=== PATIENT | female | born 1945 | race Caucasian/White ===

== ENCOUNTER 2016-05-08 15:22 | Emergency (ER) | payer OTHER, MEDICARE ==
--- NOTE | 2016-05-08 16:59 | ED CLINICAL REPORT ---
Clinical Report - Physicians/Mid Levels [facility] [address] [place] [address] 05/08/2016 15:24 Patient: CORTNEY ALBARRAN [facility] [id number] Time Seen: 16:11 May 08 2016. Arrived- By private vehicle. HISTORY OF PRESENT ILLNESS Chief Complaint: Injury to the left hand. The injury happened just prior to arrival. Occurred at home. The patient sustained a laceration. ( reports a glass chart broken her hand while washing it. Reports laceration to the left hand. No prior injury to the area. No bleeding. Was seen at the 10 minute clinic, referred to the ER for sutures.). REVIEW OF SYSTEMS The patient sustained a laceration. All systems otherwise negative, except as recorded above. PAST HISTORY Tetanus U. The patient's dominant hand is the right. She has not had a prior injury to the same area. Tetanus immunization status is up-to-date. SOCIAL HISTORY Never smoker. No alcohol use or drug use. ADDITIONAL NOTES The nursing notes have been reviewed. PHYSICAL EXAM Vital Signs: 05/08/2016 17:20 BP: 116/45. HR: 78. RR: 12. O2 saturation: 100%. Temp: 98.2 F. Appearance: Alert. Head: Head atraumatic. CVS: Normal heart rate and rhythm. Heart sounds normal. Respiratory: No respiratory distress. Breath sounds normal. Skin: Skin warm. Extremities: Hypothenar eminence, left hand: (ulnar aspect 1 cm partial thickness gaping lac, no fb, no distal dificulty with rom or other, no infectious signs , no erythema). Soft tissue tenderness present. No wrist injury. Neuro, Vascular and Tendons: Vascular status intact. No pulse deficit present. Motor intact. Neuro: Oriented X 3. No motor deficit. PROGRESS AND PROCEDURES Laceration Repair: Time: 1714May 08 2016. Location: (left ulnar aspect of hand). Time-out completed immediately before the procedure. Length: 1 cm. Complexity: simple (local anesthesia used and sutured). Wound depth/shape- linear and involving fascia. Wound is clean. Local anesthesia provided using 1% lidocaine with epi. Wound explored, cleansed and irrigated. Closure of superficial layer: interrupted 5-0 (4 sutures). Course of Care: Full range of motion, neuro and vascular intact. No signs of infectious process. Patient stable. Fall palpation. 05/08/2016 17:20 BP: 116/45. HR: 78. RR: 12. O2 saturation: 100%. Temp: 98.2 F. Patient is stable. Physical exam findings are improved. Symptoms better. Patient/family counseled. Disposition: Discharged. CLINICAL IMPRESSION Single deep laceration to the left hand. INSTRUCTIONS Protect wound and keep wound area clean. Apply bacitracin twice daily. Sutures should be removed in six days. OTC Medications: Take OTC medications according to label instructions. Available over the counter. Acetaminophen (available over the counter): take according to label instructions. Follow-up: Follow up with your doctor in three days. (Electronically signed by Elke Camacho P.A.-C 05/08/2016 17:33)
--- NOTE | 2016-05-08 16:59 | ED NURSING NOTES ---
Clinical Report - Nurses [facility] [address] [place] [address] 05/08/2016 15:24 Patient: CORTNEY ALBARRAN TRIAGE Triage time 1612 PM. Acuity: LEVEL 3. Chief Complaint: INJURY TO LEFT HAND. Alert. No acute distress. SEPSIS SCREEN: Sepsis Screen. Negative (no infection suspected/documented). --16:18 Deborah Garcia R.N. 16:12 05/08/16. HR: 73. RR: 18. O2 saturation: 100%. Temp: 97.6 F. Pain level now: 04/06. --16:18 Deborah Garcia R.N. late entry - 16:12 PM. --17:28 Deborah Garcia R.N. 16:12 05/08/16. BP: 109/45 (regular adult cuff) taken on the right arm, via an automated monitor, while sitting. --17:28 Deborah Garcia R.N. Weight: 65.7 kg stated. Height/Length: 63 inches Per Patient. BMI: 25.7. --16:12 Deborah Garcia R.N. Medications Azithromycin Oral (just finished a course of this Atx). Levothroid Oral pt uncertain, daily. Levothyroxine Sodium Oral 88 mcg, daily. Pravastatin Sodium Oral. --16:14 Deborah Garcia R.N. Allergies Penicillins. Definite Moderate(rash) --16:14 Deborah Garcia R.N. Medication/allergy information source: the patient. --16:18 Deborah Garcia R.N. History Arrived by private vehicle. Historian: patient. ( PT states at home washing a large glass bowl when it broke in her hand, went to [facility] and was told to come to ED for stiches). This occurred today. Occurred at home. She sustained a laceration. No weakness or numbness. 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 PAST MEDICAL HX: Tetanus status: up-to-date. Immunizations: up-to-date. SOCIAL HX: Never smoker. No alcohol use or drug use. No infectious disease exposure. ABUSE ASSESSMENT: No report of abuse. SELF HARM ASSESSMENT: A self harm assessment was performed. The patient answered "no" to the question "Do you have thoughts of harming or killing yourself?" and "Have you recently had thoughts about harming or killing others?". FALL RISK ASSESSMENT: Fall risk assessment completed. No fall risk identified. NUTRITIONAL RISK ASSESSMENT: The nutritional risk assessment revealed no deficiencies. FUNCTIONAL ASSESSMENT: Functional assessment: no impairments noted. LEARNING NEEDS ASSESSMENT: The learning needs assessment revealed no barriers. SKIN INTEGRITY ASSESSMENT: Skin integrity risk assessment completed. No skin integrity risk identified. --16:18 Deborah Garcia R.N. PROBLEMS: Aphthous Ulcer. Gastroesophageal Reflux Disease. Atypical Chest Pain. Bronchitis. Thyroid Disease. Hypercholesterolemia. --16:14 Deborah Garcia R.N. ADDITIONAL SURGERIES: Adenoidectomy. Appendectomy. Cholecystectomy. Tonsillectomy. --16:14 Deborah Garcia R.N. Interventions ID band on patient. --16:18 Deborah Garcia R.N. PHYSICAL ASSESSMENT Ambulatory to room. GENERAL / NEURO / PSYCH: Oriented X 4. Alert. Does not appear in pain or distress or anxious. EXTREMITIES: Capillary refill is less than 2 seconds in the extremities. Extremity pulses are within normal limits. Left hand: tenderness, erythema, small abrasion, 2.0 cm laceration with controlled bleeding and multiple puncture wounds localized to the distal and palmar aspect of the hand. No foreign body or deformity. SKIN: Skin intact. Skin is warm and dry. --16:19 Deborah Garcia R.N. NURSING PROGRESS NOTES The initial plan of care for this patient has been created This plan of care was discussed with the patient. Reassurance given to the patient and patient's family. Two patient identifiers checked. Call light placed in reach. Side rails up x 1. Bed placed in lowest position. Brakes of bed on. --16:19 Deborah Garcia R.N. DISPOSITION / DISCHARGE Departure time: 1727 PM. Condition at departure: improved and stable. The goals identified in the patient's plan of care were met. No learning barriers present. Discharge instructions provided and reviewed with the patient. Reviewed warnings (s/s of infection). Reviewed medication(s) side effects, precautions, dosing and course information. Prescription(s) given to the patient. Reviewed wound care instructions. Activity restrictions (minimal use of injured extremity and rest) reviewed. Patient verbalized understanding. Written instructions provided in Hungarian. ( Pt verbalizes follow-up care and wound care, all instructions reviewed, site intact, cleaned and wrapped). The patient was discharged by the physician assistant accounting manager. She was discharged home and accompanied by spouse. She left the Emergency Department ambulatory and via private vehicle. Spouse driving. FALL RISK ASSESSMENT: Fall risk assessment completed. No fall risk identified. --17:27 Deborah Garcia R.N. 17:20 05/08/16. BP: 116/45 (regular adult cuff) taken on the right arm, via an automated monitor, while sitting. HR: 78. RR: 12. O2 saturation: 100% on room air. Temp: 98.2 F (oral). --17:27 Deborah Garcia R.N. 17:28 05/08/16. Pain level now: 0/10. --17:28 Deborah Garcia R.N. Locked/Released at 05/08/2016 17:28 by Deborah Garcia R.N.
--- NOTE | 2016-05-08 16:59 | ED NURSING NOTES ---
Clinical Report - Nurses [facility] [address] [place] [address] 05/08/2016 15:24 Patient: CORTNEY ALBARRAN TRIAGE Triage time 1612 PM. Acuity: LEVEL 3. Chief Complaint: INJURY TO LEFT HAND. Alert. No acute distress. SEPSIS SCREEN: Sepsis Screen. Negative (no infection suspected/documented). --16:18 Deborah Garcia R.N. 16:12 05/08/16. HR: 73. RR: 18. O2 saturation: 100%. Temp: 97.6 F. Pain level now: 04/06. --16:18 Deborah Garcia R.N. late entry - 16:12 PM. --17:28 Deborah Garcia R.N. 16:12 05/08/16. BP: 109/45 (regular adult cuff) taken on the right arm, via an automated monitor, while sitting. --17:28 Deborah Garcia R.N. Weight: 65.7 kg stated. Height/Length: 63 inches Per Patient. BMI: 25.7. --16:12 Deborah Garcia R.N. Medications Azithromycin Oral (just finished a course of this Atx). Levothroid Oral pt uncertain, daily. Levothyroxine Sodium Oral 88 mcg, daily. Pravastatin Sodium Oral. --16:14 Deborah Garcia R.N. Allergies Penicillins. Definite Moderate(rash) --16:14 Deborah Garcia R.N. Medication/allergy information source: the patient. --16:18 Deborah Garcia R.N. History Arrived by private vehicle. Historian: patient. ( PT states at home washing a large glass bowl when it broke in her hand, went to [facility] and was told to come to ED for stiches). This occurred today. Occurred at home. She sustained a laceration. No weakness or numbness. 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 PAST MEDICAL HX: Tetanus status: up-to-date. Immunizations: up-to-date. SOCIAL HX: Never smoker. No alcohol use or drug use. No infectious disease exposure. ABUSE ASSESSMENT: No report of abuse. SELF HARM ASSESSMENT: A self harm assessment was performed. The patient answered "no" to the question "Do you have thoughts of harming or killing yourself?" and "Have you recently had thoughts about harming or killing others?". FALL RISK ASSESSMENT: Fall risk assessment completed. No fall risk identified. NUTRITIONAL RISK ASSESSMENT: The nutritional risk assessment revealed no deficiencies. FUNCTIONAL ASSESSMENT: Functional assessment: no impairments noted. LEARNING NEEDS ASSESSMENT: The learning needs assessment revealed no barriers. SKIN INTEGRITY ASSESSMENT: Skin integrity risk assessment completed. No skin integrity risk identified. --16:18 Deborah Garcia R.N. PROBLEMS: Aphthous Ulcer. Gastroesophageal Reflux Disease. Atypical Chest Pain. Bronchitis. Thyroid Disease. Hypercholesterolemia. --16:14 Deborah Garcia R.N. ADDITIONAL SURGERIES: Adenoidectomy. Appendectomy. Cholecystectomy. Tonsillectomy. --16:14 Deborah Garcia R.N. Interventions ID band on patient. --16:18 Deborah Garcia R.N. PHYSICAL ASSESSMENT Ambulatory to room. GENERAL / NEURO / PSYCH: Oriented X 4. Alert. Does not appear in pain or distress or anxious. EXTREMITIES: Capillary refill is less than 2 seconds in the extremities. Extremity pulses are within normal limits. Left hand: tenderness, erythema, small abrasion, 2.0 cm laceration with controlled bleeding and multiple puncture wounds localized to the distal and palmar aspect of the hand. No foreign body or deformity. SKIN: Skin intact. Skin is warm and dry. --16:19 Deborah Garcia R.N. NURSING PROGRESS NOTES The initial plan of care for this patient has been created This plan of care was discussed with the patient. Reassurance given to the patient and patient's family. Two patient identifiers checked. Call light placed in reach. Side rails up x 1. Bed placed in lowest position. Brakes of bed on. --16:19 Deborah Garcia R.N. DISPOSITION / DISCHARGE Departure time: 1727 PM. Condition at departure: improved and stable. The goals identified in the patient's plan of care were met. No learning barriers present. Discharge instructions provided and reviewed with the patient. Reviewed warnings (s/s of infection). Reviewed medication(s) side effects, precautions, dosing and course information. Prescription(s) given to the patient. Reviewed wound care instructions. Activity restrictions (minimal use of injured extremity and rest) reviewed. Patient verbalized understanding. Written instructions provided in Frisian. ( Pt verbalizes follow-up care and wound care, all instructions reviewed, site intact, cleaned and wrapped). The patient was discharged by the physician graduate assistant athletic trainer. She was discharged home and accompanied by spouse. She left the Emergency Department ambulatory and via private vehicle. Spouse driving. FALL RISK ASSESSMENT: Fall risk assessment completed. No fall risk identified. --17:27 Deborah Garcia R.N. 17:20 05/08/16. BP: 116/45 (regular adult cuff) taken on the right arm, via an automated monitor, while sitting. HR: 78. RR: 12. O2 saturation: 100% on room air. Temp: 98.2 F (oral). --17:27 Deborah Garcia R.N. 17:28 05/08/16. Pain level now: 0/10. --17:28 Deborah Garcia R.N. Locked/Released at 05/08/2016 17:28 by Deborah Garcia R.N.
--- NOTE | 2016-05-08 16:59 | ED CLINICAL REPORT ---
Clinical Report - Physicians/Mid Levels Located Within [facility] [address] [place] [address] 05/08/2016 15:24 [id number] Time Seen: 16:11 May 08 2016. Arrived- By private vehicle. HISTORY OF PRESENT ILLNESS Chief Complaint: Injury to the left hand. The injury happened just prior to arrival. Occurred at home. The patient sustained a laceration. ( reports a glass chart broken her hand while washing it. Reports laceration to the left hand. No prior injury to the area. No bleeding. Was seen at the [facility] clinic, referred to the ER for sutures.). REVIEW OF SYSTEMS The patient sustained a laceration. All systems otherwise negative, except as recorded above. PAST HISTORY Tetanus U. The patient's dominant hand is the right. She has not had a prior injury to the same area. Tetanus immunization status is up-to-date. SOCIAL HISTORY Never smoker. No alcohol use or drug use. ADDITIONAL NOTES The nursing notes have been reviewed. PHYSICAL EXAM Vital Signs: 05/08/2016 17:20 BP: 116/45. HR: 78. RR: 12. O2 saturation: 100%. Temp: 98.2 F. Appearance: Alert. Head: Head atraumatic. CVS: Normal heart rate and rhythm. Heart sounds normal. Respiratory: No respiratory distress. Breath sounds normal. Skin: Skin warm. Extremities: Hypothenar eminence, left hand: (ulnar aspect 1 cm partial thickness gaping lac, no fb, no distal dificulty with rom or other, no infectious signs , no erythema). Soft tissue tenderness present. No wrist injury. Neuro, Vascular and Tendons: Vascular status intact. No pulse deficit present. Motor intact. Neuro: Oriented X 3. No motor deficit. PROGRESS AND PROCEDURES Laceration Repair: Time: 1714May 08 2016. Location: (left ulnar aspect of hand). Time-out completed immediately before the procedure. Length: 1 cm. Complexity: simple (local anesthesia used and sutured). Wound depth/shape- linear and involving fascia. Wound is clean. Local anesthesia provided using 1% lidocaine with epi. Wound explored, cleansed and irrigated. Closure of superficial layer: interrupted 5-0 (4 sutures). Course of Care: Full range of motion, neuro and vascular intact. No signs of infectious process. Patient stable. Fall palpation. 05/08/2016 17:20 BP: 116/45. HR: 78. RR: 12. O2 saturation: 100%. Temp: 98.2 F. Patient is stable. Physical exam findings are improved. Symptoms better. Patient/family counseled. Disposition: Discharged. CLINICAL IMPRESSION Single deep laceration to the left hand. INSTRUCTIONS Protect wound and keep wound area clean. Apply bacitracin twice daily. Sutures should be removed in six days. OTC Medications: Take OTC medications according to label instructions. Available over the counter. Acetaminophen (available over the counter): take according to label instructions. Follow-up: Follow up with your doctor in three days. (Electronically signed by Elke Camacho P.A.-C 05/08/2016 17:33)
--- NOTE | 2016-05-08 17:33 | ED MED RECONCILIATION SUMMARY ---
Patient: CORTNEY ALBARRAN Medication Reconciliation Report [facility] VisitID: [id number] [address] [place] [address] 70y, F Registration Date/Time: 05/08/2016 Weight: 65.7 kg Height/Length: 63 in. BMI: 25.7 ALLERGIES: Penicillins The patient's Home Medications are listed below: THE FOLLOWING MEDICATIONS NEED TO BE RECONCILED: Azithromycin Oral, just finished a course of this Atx Levothroid Oral pt uncertain, daily Levothyroxine Sodium Oral 88 mcg, daily Pravastatin Sodium Oral The source(s) of the original Home Medication information: patient The following Medications were given to the patient in the Emergency Department: None. The following Medications were prescribed to the patient: Take OTC medications according to label instructions. Available over the counter. -- Elke Camacho, P.A.-C Acetaminophen (available over the counter): take according to label instructions. -- Elke Camacho, P.A.-C
--- NOTE | 2016-05-08 17:33 | ED MAR SUMMARY ---
..... Medication Administration Record [facility] [address] [place], [place] [id number] Patient: CORTNEY ALBARRAN Visit ID: [id number] 70y, F Weight: 65.7 kg Height/Length: 63 in BMI: 25.7 ALLERGIES: Penicillins
--- NOTE | 2016-05-08 17:33 | ED MAR SUMMARY ---
..... Medication Administration Record [facility] [address] [place], [place] [id number] Patient: CORTNEY ALBARRAN Visit ID: [id number] 70y, F Weight: 65.7 kg Height/Length: 63 in BMI: 25.7 ALLERGIES: Penicillins
--- NOTE | 2016-05-08 17:33 | ED DISCHARGE INSTRUCTIONS ---
Patient: CORTNEY ALBARRAN General Instructions [facility] VisitID: [id number] [place] [address] 70y, F Registration Date/Time: 05/08/2016 Single deep laceration to the left hand. INSTRUCTIONS Protect wound and keep wound area clean. Apply bacitracin twice daily. Sutures should be removed in six days. OTC Medications: Take OTC medications according to label instructions. Available over the counter. Acetaminophen (available over the counter): take according to label instructions. Follow-up: Follow up with your doctor in three days. ADDITIONAL INFORMATION Laceration (All Closures) Alaceration is a cut through the skin. This will usually require stitches (sutures) or leandro if it is deep. Minor cuts may be treated with a surgical tape closure orskin glue. Home care The following guidelines will help you care for your laceration at home: Extremity, face, or trunk wounds Keep the wound clean and dry. If a bandage was applied and it becomes wet or dirty, replace it. Otherwise, leave it in place for the first 24 hours. If stitches or leandro were used, clean the wound daily. After removing the bandage, wash the area with soap and water. Use a wet cotton swab to loosen and remove any blood or crust that forms. The doctor may prescribe an antibiotic cream or ointment to prevent infection. Do not stop taking this medication until you have finished the prescribed course or the doctor tells you to stop. The doctor may also prescribe medications for pain. Follow the doctors instructions for taking these medications. You may remove the bandage to shower as usual after the first 24 hours, but do not soak the area in water (no swimming) until the stitches or leandro are removed. If surgical tape was used, keep the area clean and dry. If it becomes wet, blot it dry with a towel. If skin glue was used, do not scratch, rub, or pick at the adhesive film. Do not place tape directly over the film. Do not apply liquid, ointment, or creams to the wound while the film is in place. Do not clean the wound with peroxide and do not apply ointments. Avoid activities that cause heavy sweating until the film has fallen off. Protect the wound from prolonged exposure to sunlight or tanning lamps. You may shower as usual but do not soak the wound in water (no baths or swimming). The film will fall off by itself in 510 days. Scalp wounds During the first two days, you may carefully rinse your hair in the shower to remove blood, glass or dirt particles. After two days, you may shower and shampoo your hair normally. Do not soak your scalp in the tub or go swimming until the stitches or leandro have been removed. Talk with your doctor before applying any antibiotic ointment to the wound. Mouth wounds Eat soft foods to reduce pain. If the cut is inside of your mouth, clean by rinsing after each meal and at bedtime with a mixture of equal parts water and hydrogen peroxide (do not swallow!). Or, you can use a cotton swab to directly apply hydrogen peroxide onto the cut. Mouth wounds can be painful when eating. You may use an [id number] local numbing solution for pain relief. If this is not available, you may use any numbing solution for teething babies. You may apply this directly to the sores with a cotton-tip swab or with your finger. Follow-up care Follow up with your health care provider. Most skin wounds heal within ten days. Mouth and facial wounds heal within five days. However, even with proper treatment, a wound infection may sometimes occur. Therefore, you should check the wound daily for signs of infection listed below. Stitches should be removed from the face within five days; stitches and leandro should be removed from other parts of the body within 714 days. If dissolving stitches were used in the mouth, these will fall out or dissolve without the need for removal. If tape closures were used, remove them yourself if they have not fallen off after 7 days. Ifskin glue was used, the film will fall off by itself in 510 days. When to seek medical care Get prompt medical attention if any of these occur: Bleeding not controlled by direct pressure Signs of infection, including increasing pain in the wound, increasing wound redness or swelling, or pus coming from the wound Fever of 100.4F (38C) or higher, or as directed by your health care provider Stitches or leandro come apart or fall out or surgical tape falls off before 7 days Wound edges re-open Laceration, Extremity (Sutures, Leandro, Or Tape) A laceration is a cut through the skin. This will usually require stitches (sutures) or leandro if it is deep. Minor cuts may be treated with surgical tape closures. Home care The following guidelines will help you care for your laceration at home: Keep the wound clean and dry. If a bandage was applied and it becomes wet or dirty, replace it. Otherwise, leave it in place for the first 24 hours, then change it once a day or as directed. If stitches or leandro were used, clean the wound daily: After removing the bandage, wash the area with soap and water. Use a wet cotton swab to loosen and remove any blood or crust that forms. After cleaning, keep the wound clean and dry. Talk with your doctor before applying any antibiotic ointment to the wound. Reapply the bandage. You may remove the bandage to shower as usual after the first 24 hours, but do not soak the area in water (no swimming) until the stitches or leandro are removed. If surgical tape closures were used, keep the area clean and dry. If it becomes wet, blot it dry with a towel. The doctor may prescribe an antibiotic cream or ointment to prevent infection. Do not stop taking this medication until you have finished the prescribed course or the doctor tells you to stop. The doctor may also prescribe medications for pain. Follow the doctors instructions for taking these medications. If you have chronic liver or kidney disease or ever had a stomach ulcer or GI bleeding, talk with your doctor before using these medicines. Follow-up care Follow up with your health care provider. Most skin wounds heal within ten days. However, an infection may sometimes occur despite proper treatment. Therefore, check the wound daily for the signs of infection listed below. Stitches and leandro should be removed within 714 days. If surgical tape closures were used, you may remove them after 10 days, if they have not fallen off by then. Notify your doctor if you notice persistent numbness or weakness in the injured extremity. (Note:A radiologist will review any X-rays that were taken. We will notify you of any new findings that may affect your care.) When to seek medical care Get prompt medical attention if any of these occur: Increasing pain in the wound Redness, swelling, or pus coming from the wound Fever of 100.4F (38C) or higher, or as directed by your health care provider If stitches or leandro come apart or fall out before your next appointment If the surgical tape closures fall off within seven days, or the wound edges re-open Bleeding not controlled by direct pressure Laceration: Will There Be A Scar? A laceration is a cut through one or more layers of the skin. The goal of emergency treatment is to clean the wound and close it to prevent infection, control bleeding and speed healing. Cuts heal because the body is able to repair the skin by "sealing" the edges together with collagen, a kind of "skin cement." How deep your cut is, its location on your body, your age and the way your skin heals all determine how visible the final scar will be. Some persons tend to heal with more scar tissue than others. This cut will probably heal similar to other cuts you have had in the past. What You Can Do: There are a few simple things that you can do to limit the amount of scar that forms: 1) PREVENT INFECTION: An infected wound makes a bigger scar. Keep the wound clean and dry. Change the dressing and apply any ointment/cream as directed. 2) MASSAGE THE WOUND:After the stitches have been removed: Use a moisturizing cream or lotion containing Aloe or Vitamin E Oil and gently massage the skin around the wound with your fingertips (wash your hands first!). Do this twice a day for the first two weeks, then once a day for a month. This will increase the flow of oxygen and blood to the wound and prevent excess scar tissue from building up. 3) AVOID SUN EXPOSURE: During the first six months, avoid sun exposure since the scar may hurst a much darker color than the skin around it. When in the sun, use SPF #50 (or greater) sun block on the scar, or cover the area with a hat or clothing. What To Expect: -- The cut will be sealed within 2 days and will be strong within 5-10 days. However, it will take at least SIX MONTHS for it to be fully healed. -- During the FIRST THREE MONTHS, you may notice the scar line getting more red or purple in color. The scar may become raised. The skin around the wound may feel thick and lumpy. -- During the FOURTH TO SIXTH MONTHS, this process begins to reverse. The red and purple color will fade, the scar line flattens, and the skin around it feels more normal. -- In most cases, the way the scar line looks after six months is the way it will remain, although there may be some continued improvement up to one year after the injury. Is There Anything Else That Can Be Done? If you do not like the way the scar looks after six months, a plastic surgeon may be able to perform a "scar revision." If you have any questions or problems as your wound heals, contact your doctor or this facility. We will be glad to assist you. You have been given the following additional information: Laceration, All Laceration, Extrem (Suture, Staple, Or Tape) Laceration, How To Minimize Scar (Electronically signed by Elke Camacho P.A.-C 05/08/2016 17:33)
--- NOTE | 2016-05-08 17:33 | ED MED RECONCILIATION SUMMARY ---
Patient: CORTNEY ALBARRAN Medication Reconciliation Report [facility] VisitID: [id number] [address] [place] [address] 70y, F Registration Date/Time: 05/08/2016 Weight: 65.7 kg Height/Length: 63 in. BMI: 25.7 ALLERGIES: Penicillins The patient's Home Medications are listed below: THE FOLLOWING MEDICATIONS NEED TO BE RECONCILED: Azithromycin Oral, just finished a course of this Atx Levothroid Oral pt uncertain, daily Levothyroxine Sodium Oral 88 mcg, daily Pravastatin Sodium Oral The source(s) of the original Home Medication information: patient The following Medications were given to the patient in the Emergency Department: None. The following Medications were prescribed to the patient: Take OTC medications according to label instructions. Available over the counter. -- Elke Camacho, P.A.-C Acetaminophen (available over the counter): take according to label instructions. -- Elke Camacho, P.A.-C
== END 2016-05-08 17:22 | disposition home or self-care (01) ==
LOC: ED SRH 15:22
DX: S61.412A Laceration without foreign body of left hand, initial encounter (principal); W25.XXXA Contact with sharp glass, initial encounter; Y93.G1 Activity, food preparation and clean up; Y92.009 Unspecified place in unspecified non-institutional (private) residence as the place of occurrence of the external cause; Y99.9 Unspecified external cause status